=== PATIENT | male | born 1955 | race African-American/Black ===

== ENCOUNTER 2018-05-24 18:21 | Emergency (ER) | payer OTHER, MEDICARE ==
[~2018-05-24] VITALS: Ht 170.2 cm; Wt 70.8 kg
[2018-05-24 18:26] VITALS: BP 120/80
== END 2018-05-24 19:05 | disposition admitted as inpatient to this hospital (09) ==
LOC: ERH 18:21
DX: S41.111A Laceration without foreign body of right upper arm, initial encounter (principal)